=== PATIENT | male | born 1985 | race Caucasian/White ===

== ENCOUNTER 2022-07-25 16:13 | Emergency (ER) | payer OTHER ==
[~2022-07-25] VITALS: Ht 175.3 cm; Wt 84.4 kg
[2022-07-25] MEDS ORDERED: CEFDINIR300 MG PO (20:04)
== END 2022-07-25 20:44 | disposition home or self-care (01) ==
LOC: ED 16:13
DX: N12 Tubulo-interstitial nephritis, not specified as acute or chronic (principal)
CPT/HCPCS: 36415; 74176; 80053; 81001; 85025; 99284-25; A9270